=== PATIENT | female | born 1945 | race Caucasian/White ===

== ENCOUNTER 2024-03-30 16:49 | Inpatient (IN) ==
[2024-03-30] MEDS ORDERED: IOPAMIDOL 100 ML BOTTLE IV ONE (16:50)
[2024-03-30] MEDS: ONDANSETRON 4 MG/2 ML VIAL IV ONE (17:20)
[2024-03-30] MEDS: PANTOPRAZOLE 40 MG VIAL IV ONE (17:20)
[2024-03-30 17:55] LABS: Basophils # (Auto) 0.02 K/mcL (0.00-0.30); Basophils % (Auto) 0.1 % (0.0-2.0); Eosinophils # (Auto) 0.01 K/mcL (0.00-0.70); Eosinophils % (Auto) 0.1 % (0.0-7.0); Hemoglobin 13.3 g/dL (11.2-15.7); Lymphocytes # (Auto) 0.91 K/mcL (1.50-4.80); Lymphocytes % (Auto) 5.3 % (15.5-49.0); Mean Cell Volume 91.9 fL (80.0-100.0); Mean Corpuscular HGB Conc 32.4 g/dL (31.0-36.0); Mean Platelet Volume 11.5 fL (8.8-12.5); Monocytes # (Auto) 0.58 K/mcL (0.10-0.90); Monocytes % (Auto) 3.4 % (1.0-12.0); Neutrophils % (Auto) 90.9 % (38.0-78.0); Platelet Count 301 K/mcL (140-440); RBC 4.46 M/mcL (3.59-5.38); Red Cell Distribution Width 13.2 % (11.5-14.5); WBC 17.1 K/mcL (4.5-11.0)
[2024-03-30] MEDS: HYDROmorphone 0.5 MG/0.5 ML SYRINGE IV PRN (18:00)
[2024-03-30 18:04] LABS: ALT/SGPT 12 U/L (<40); AST/SGOT 24 U/L (<32); Albumin 4.4 gm/dL (3.2-5.2); Albumin/Globulin Ratio 1.5 (1.0-2.3); Alkaline Phosphatase 103 U/L (39-117); Bilirubin,Total 0.3 mg/dL (0.1-1.0); Blood Urea Nitrogen 15 mg/dL (8-23); Carbon Dioxide 21 mmol/L (22-30); Chloride 99 mmol/L (96-108); Glomerular Filtration Rate 70; Glucose 169 mg/dL (70-105); Potassium 3.8 mmol/L (3.3-5.1); Sodium 137 mmol/L (133-145)
[2024-03-30] MEDS ORDERED: NALOXONE HCL 0.4 MG/ML VIAL IV PRN (19:31)
[2024-03-30] MEDS ORDERED: HYDROmorphone 0.5 MG/0.5 ML SYRINGE IV PRN (19:36)
[2024-03-30] MEDS: 0.9 % SODIUM CHLORIDE 1,000 ML IV SCH (22:21)
[2024-03-30] MEDS: PIPERACILLIN SODIUM/TAZOBACTAM 3.375 GM in DEXTROSE 5% IN WATER 50 ML IV SCH (22:22)
[2024-03-30] MEDS: PIPERACILLIN SODIUM/TAZOBACTAM 3.375 GM in DEXTROSE 5% IN WATER 100 ML IV SCH (22:48)
[2024-03-31] MEDS: ONDANSETRON 4 MG/2 ML VIAL IV PRN (01:45)
[2024-03-31] MEDS: PIPERACILLIN SODIUM/TAZOBACTAM 3.375 GM in DEXTROSE 5% IN WATER 100 ML IV SCH (01:48)
[2024-03-31 06:43] LABS: Basophils # (Auto) 0.01 K/mcL (0.00-0.30); Basophils % (Auto) 0.1 % (0.0-2.0); Eosinophils # (Auto) 0 K/mcL (0.00-0.70); Eosinophils % (Auto) 0 % (0.0-7.0); Hemoglobin 15.4 g/dL (11.2-15.7); Lymphocytes # (Auto) 0.76 K/mcL (1.50-4.80); Lymphocytes % (Auto) 4.6 % (15.5-49.0); Mean Cell Volume 92.7 fL (80.0-100.0); Mean Corpuscular HGB Conc 32.1 g/dL (31.0-36.0); Monocytes # (Auto) 0.91 K/mcL (0.10-0.90); Monocytes % (Auto) 5.5 % (1.0-12.0); Neutrophils % (Auto) 89.7 % (38.0-78.0); Platelet Count 376 K/mcL (140-440); RBC 5.18 M/mcL (3.59-5.38); Red Cell Distribution Width 13.3 % (11.5-14.5); WBC 16.4 K/mcL (4.5-11.0)
[2024-03-31 07:13] LABS: ALT/SGPT 9 U/L (<40); AST/SGOT 16 U/L (<32); Albumin/Globulin Ratio 1.4 (1.0-2.3); Alkaline Phosphatase 92 U/L (39-117); Bilirubin,Direct < 0.2 mg/dL (0-0.3); Bilirubin,Total 0.4 mg/dL (0.1-1.0); Blood Urea Nitrogen 19 mg/dL (8-23); Calcium 10.4 mg/dL (8.6-10.4); Carbon Dioxide 25 mmol/L (22-30); Chloride 99 mmol/L (96-108); Globulin 2.8 gm/dL (2.2-3.7); Glomerular Filtration Rate 47; Glucose 205 mg/dL (70-105); Lactate Dehydrogenase 151 U/L (135-225); Potassium 4.7 mmol/L (3.3-5.1); Sodium 138 mmol/L (133-145); Triglycerides 84 mg/dL (<150); Uric Acid 5.8 mg/dL (2.5-8.0)
[2024-03-31] MEDS: PANTOPRAZOLE 40 MG VIAL IV SCH (07:30)
[2024-03-31] MEDS ORDERED: ONDANSETRON 4 MG/2 ML VIAL ONE (09:52)
[2024-03-31] MEDS ORDERED: PROPOFOL 200 MG/20 ML VIAL IV ONE (09:52)
[2024-03-31] MEDS ORDERED: fentaNYL 100 MCG/2 ML VIAL ONE (09:52)
[2024-03-31] MEDS ORDERED: SUGAMMADEX SODIUM 200 MG/2 ML VIAL IV ONE ×2 (09:52→11:32)
[2024-03-31] MEDS ORDERED: DEXAMETHASONE 10 MG/ML VIAL ONE (09:52)
[2024-03-31] MEDS ORDERED: GLYCOPYRROLATE 0.2 MG/ML VIAL IV ONE (09:52)
[2024-03-31] MEDS ORDERED: SUCCINYLCHOLINE 200 MG/10 ML VIAL IV ONE (10:06)
[2024-03-31] MEDS ORDERED: ROPIVACAINE HCL/PF 30 ML VIAL IJ ONE (10:06)
[2024-03-31] MEDS ORDERED: ROCURONIUM 10 MG/ML ML IV ONE (11:22)
[2024-03-31] MEDS ORDERED: HYDROmorphone 0.5 MG/0.5 ML SYRINGE ONE (11:25)
[2024-03-31 11:46] LABS: Appearance,Urine Clear (Clear); Bilirubin,Urine Negative (Negative); Color,Urine Yellow; Glucose,Urine (UA) Negative (Negative); Ketones,Urine 15 mg/dL (Negative); Leukocyte Esterase,Urine Negative /uL (Negative); Nitrate,Urine Negative (Negative); PH,Urine 5.5 (5.0-9.0); Protein,Urine Negative (Negative); Specific Gravity,Urine 1.015 (1.000-1.035); Urine Blood Negative ery/mcL (Negative); Urine RBC 0 /hpf (0-3); Urine Squamous Epithelial Cell 0 /hpf (0-4); Urine WBC 0 /hpf (0-4); Urobilinogen,Urine Normal
[2024-03-31] MEDS ORDERED: fentaNYL 100 MCG/2 ML VIAL IV PRN (11:46)
[2024-03-31] MEDS ORDERED: IPRATROPIUM/ALBUTEROL 3 ML AMPUL.NEB NEB PRN (11:46)
[2024-03-31] MEDS: LACTATED RINGERS 1,000 ML IV SCH (12:31)
[2024-03-31] MEDS: ACETAMINOPHEN 1,000 MG/100 ML BAG IV SCH (12:36)
[2024-03-31] MEDS ORDERED: DEXTROSE 50% 50 ML VIAL IV PRN (13:27)
[2024-03-31] MEDS ORDERED: DEXTROSE 31 GM ORAL.SUSP PO PRN (13:27)
[2024-03-31] MEDS: METOCLOPRAMIDE 10 MG/2 ML VIAL IV SCH (13:51)
[2024-03-31] MEDS: INSULIN LISPRO 1 UNIT/0.01 ML UNIT SQ SCH (17:34)
[2024-04-01] MEDS: fentaNYL 100 MCG/2 ML VIAL IV PRN (02:03)
[2024-04-01 09:43] LABS: Basophils # (Auto) 0.01 K/mcL (0.00-0.30); Basophils % (Auto) 0.1 % (0.0-2.0); Eosinophils # (Auto) 0 K/mcL (0.00-0.70); Eosinophils % (Auto) 0 % (0.0-7.0); Hematocrit 37.2 % (34.1-44.9); Hemoglobin 11.8 g/dL (11.2-15.7); Lymphocytes # (Auto) 1.27 K/mcL (1.50-4.80); Lymphocytes % (Auto) 8.2 % (15.5-49.0); Mean Cell Volume 94.7 fL (80.0-100.0); Mean Corpuscular HGB Conc 31.7 g/dL (31.0-36.0); Mean Platelet Volume 10.7 fL (8.8-12.5); Monocytes # (Auto) 1.41 K/mcL (0.10-0.90); Monocytes % (Auto) 9.1 % (1.0-12.0); Neutrophils % (Auto) 82.3 % (38.0-78.0); Platelet Count 255 K/mcL (140-440); RBC 3.93 M/mcL (3.59-5.38); Red Cell Distribution Width 13.6 % (11.5-14.5); WBC 15.5 K/mcL (4.5-11.0)
[2024-04-01 10:10] LABS: ALT/SGPT 8 U/L (<40); AST/SGOT 14 U/L (<32); Albumin 3.3 gm/dL (3.2-5.2); Albumin/Globulin Ratio 1.5 (1.0-2.3); Alkaline Phosphatase 59 U/L (39-117); Bilirubin,Direct < 0.2 mg/dL (0-0.3); Bilirubin,Total 0.3 mg/dL (0.1-1.0); Blood Urea Nitrogen 28 mg/dL (8-23); Calcium 9.3 mg/dL (8.6-10.4); Carbon Dioxide 23 mmol/L (22-30); Chloride 106 mmol/L (96-108); Globulin 2.2 gm/dL (2.2-3.7); Glomerular Filtration Rate 39; Glucose 109 mg/dL (70-105); Lactate Dehydrogenase 132 U/L (135-225); Phosphorous 3.4 mg/dL (2.5-4.5); Potassium 4.2 mmol/L (3.3-5.1); Sodium 139 mmol/L (133-145); Triglycerides 83 mg/dL (<150); Uric Acid 5.3 mg/dL (2.5-8.0)
[2024-04-01] MEDS: DEXTROSE 5%-NS 1,000 ML IV SCH (21:29)
[2024-04-02 13:39] LABS: Basophils # (Auto) 0.02 K/mcL (0.00-0.30); Basophils % (Auto) 0.2 % (0.0-2.0); Eosinophils # (Auto) 0.07 K/mcL (0.00-0.70); Eosinophils % (Auto) 0.6 % (0.0-7.0); Hematocrit 36.5 % (34.1-44.9); Hemoglobin 11.8 g/dL (11.2-15.7); Lymphocytes # (Auto) 1.44 K/mcL (1.50-4.80); Lymphocytes % (Auto) 11.8 % (15.5-49.0); Mean Cell Volume 93.4 fL (80.0-100.0); Mean Corpuscular HGB Conc 32.3 g/dL (31.0-36.0); Mean Platelet Volume 10.8 fL (8.8-12.5); Monocytes # (Auto) 1.07 K/mcL (0.10-0.90); Monocytes % (Auto) 8.8 % (1.0-12.0); Neutrophils % (Auto) 78.4 % (38.0-78.0); Platelet Count 272 K/mcL (140-440); RBC 3.91 M/mcL (3.59-5.38); Red Cell Distribution Width 13.3 % (11.5-14.5); WBC 12.2 K/mcL (4.5-11.0)
[2024-04-02 13:55] LABS: ALT/SGPT 7 U/L (<40); AST/SGOT 17 U/L (<32); Albumin 3.5 gm/dL (3.2-5.2); Albumin/Globulin Ratio 1.6 (1.0-2.3); Alkaline Phosphatase 55 U/L (39-117); Bilirubin,Direct < 0.2 mg/dL (0-0.3); Bilirubin,Total 0.3 mg/dL (0.1-1.0); Blood Urea Nitrogen 14 mg/dL (8-23); Calcium 9.5 mg/dL (8.6-10.4); Carbon Dioxide 24 mmol/L (22-30); Chloride 106 mmol/L (96-108); Globulin 2.2 gm/dL (2.2-3.7); Glomerular Filtration Rate 82; Glucose 115 mg/dL (70-105); Lactate Dehydrogenase 135 U/L (135-225); Phosphorous 1.2 mg/dL (2.5-4.5); Potassium 3.4 mmol/L (3.3-5.1); Sodium 139 mmol/L (133-145); Triglycerides 109 mg/dL (<150); Uric Acid 3.4 mg/dL (2.5-8.0)
[2024-04-03 06:57] LABS: Basophils # (Auto) 0.04 K/mcL (0.00-0.30); Basophils % (Auto) 0.4 % (0.0-2.0); Eosinophils # (Auto) 0.46 K/mcL (0.00-0.70); Eosinophils % (Auto) 4.9 % (0.0-7.0); Hematocrit 35.5 % (34.1-44.9); Hemoglobin 11.6 g/dL (11.2-15.7); Lymphocytes # (Auto) 1.87 K/mcL (1.50-4.80); Lymphocytes % (Auto) 19.9 % (15.5-49.0); Mean Cell Volume 92.4 fL (80.0-100.0); Mean Corpuscular HGB Conc 32.7 g/dL (31.0-36.0); Mean Platelet Volume 11.2 fL (8.8-12.5); Monocytes # (Auto) 0.93 K/mcL (0.10-0.90); Monocytes % (Auto) 9.9 % (1.0-12.0); Neutrophils % (Auto) 64.8 % (38.0-78.0); Platelet Count 248 K/mcL (140-440); RBC 3.84 M/mcL (3.59-5.38); Red Cell Distribution Width 13.1 % (11.5-14.5); WBC 9.4 K/mcL (4.5-11.0)
[2024-04-03 07:20] LABS: ALT/SGPT 8 U/L (<40); AST/SGOT 19 U/L (<32); Albumin 3.3 gm/dL (3.2-5.2); Albumin/Globulin Ratio 1.5 (1.0-2.3); Alkaline Phosphatase 51 U/L (39-117); Bilirubin,Direct < 0.2 mg/dL (0-0.3); Bilirubin,Total 0.4 mg/dL (0.1-1.0); Blood Urea Nitrogen 9 mg/dL (8-23); Calcium 9.5 mg/dL (8.6-10.4); Carbon Dioxide 23 mmol/L (22-30); Chloride 106 mmol/L (96-108); Globulin 2.2 gm/dL (2.2-3.7); Glomerular Filtration Rate 86; Glucose 104 mg/dL (70-105); Lactate Dehydrogenase 157 U/L (135-225); Phosphorous 1.1 mg/dL (2.5-4.5); Potassium 3.2 mmol/L (3.3-5.1); Sodium 138 mmol/L (133-145); Triglycerides 121 mg/dL (<150); Uric Acid 2.7 mg/dL (2.5-8.0)
[2024-04-03] MEDS: POTASSIUM PHOSPHATE 40 MEQ in DEXTROSE 5% IN WATER 500 ML IV SCH (16:06)
[2024-04-04 06:40] LABS: Basophils # (Auto) 0.05 K/mcL (0.00-0.30); Basophils % (Auto) 0.6 % (0.0-2.0); Eosinophils # (Auto) 0.74 K/mcL (0.00-0.70); Eosinophils % (Auto) 8.5 % (0.0-7.0); Hematocrit 36.1 % (34.1-44.9); Hemoglobin 11.9 g/dL (11.2-15.7); Lymphocytes % (Auto) 19.5 % (15.5-49.0); Mean Cell Volume 90.7 fL (80.0-100.0); Mean Platelet Volume 11.3 fL (8.8-12.5); Monocytes # (Auto) 0.82 K/mcL (0.10-0.90); Monocytes % (Auto) 9.4 % (1.0-12.0); Neutrophils % (Auto) 61.9 % (38.0-78.0); Platelet Count 265 K/mcL (140-440); RBC 3.98 M/mcL (3.59-5.38); Red Cell Distribution Width 13.2 % (11.5-14.5); WBC 8.7 K/mcL (4.5-11.0)
[2024-04-04 07:21] LABS: ALT/SGPT 8 U/L (<40); AST/SGOT 22 U/L (<32); Albumin 3.4 gm/dL (3.2-5.2); Albumin/Globulin Ratio 1.5 (1.0-2.3); Alkaline Phosphatase 54 U/L (39-117); Bilirubin,Direct < 0.2 mg/dL (0-0.3); Bilirubin,Total 0.3 mg/dL (0.1-1.0); Blood Urea Nitrogen 7 mg/dL (8-23); Calcium 9.7 mg/dL (8.6-10.4); Carbon Dioxide 23 mmol/L (22-30); Chloride 107 mmol/L (96-108); Globulin 2.3 gm/dL (2.2-3.7); Glomerular Filtration Rate 86; Glucose 108 mg/dL (70-105); Lactate Dehydrogenase 178 U/L (135-225); Phosphorous 2.5 mg/dL (2.5-4.5); Potassium 3.2 mmol/L (3.3-5.1); Sodium 141 mmol/L (133-145); Triglycerides 156 mg/dL (<150); Uric Acid 2.3 mg/dL (2.5-8.0)
[2024-04-04] MEDS: POTASSIUM PHOSPHATE 40 MEQ in DEXTROSE 5% IN WATER 500 ML IV SCH (18:30)
[2024-04-04] MEDS: POTASSIUM PHOSPHATE 66 MEQ/15 ML VIAL IV ONE ×2 (20:25→22:07)
[2024-04-05 06:58] LABS: ALT/SGPT 10 U/L (<40); AST/SGOT 23 U/L (<32); Albumin 3.5 gm/dL (3.2-5.2); Albumin/Globulin Ratio 1.6 (1.0-2.3); Alkaline Phosphatase 59 U/L (39-117); Bilirubin,Direct < 0.2 mg/dL (0-0.3); Bilirubin,Total 0.4 mg/dL (0.1-1.0); Blood Urea Nitrogen 7 mg/dL (8-23); Calcium 9.6 mg/dL (8.6-10.4); Carbon Dioxide 23 mmol/L (22-30); Chloride 104 mmol/L (96-108); Globulin 2.2 gm/dL (2.2-3.7); Glomerular Filtration Rate 82; Glucose 101 mg/dL (70-105); Lactate Dehydrogenase 186 U/L (135-225); Phosphorous 3.7 mg/dL (2.5-4.5); Potassium 3.5 mmol/L (3.3-5.1); Sodium 139 mmol/L (133-145); Triglycerides 170 mg/dL (<150); Uric Acid 2.4 mg/dL (2.5-8.0)
[2024-04-05 07:58] LABS: Basophils # (Auto) 0.05 K/mcL (0.00-0.30); Basophils % (Auto) 0.6 % (0.0-2.0); Eosinophils # (Auto) 1.03 K/mcL (0.00-0.70); Eosinophils % (Auto) 11.7 % (0.0-7.0); Hematocrit 37.5 % (34.1-44.9); Hemoglobin 12.2 g/dL (11.2-15.7); Lymphocytes % (Auto) 17.1 % (15.5-49.0); Mean Cell Volume 91.9 fL (80.0-100.0); Mean Corpuscular HGB Conc 32.5 g/dL (31.0-36.0); Mean Platelet Volume 11.1 fL (8.8-12.5); Monocytes % (Auto) 9.1 % (1.0-12.0); Neutrophils % (Auto) 61.4 % (38.0-78.0); Platelet Count 277 K/mcL (140-440); RBC 4.08 M/mcL (3.59-5.38); Red Cell Distribution Width 13.2 % (11.5-14.5); WBC 8.8 K/mcL (4.5-11.0)
[2024-04-05] MEDS: MAGNESIUM SULFATE 4 GM/100 ML BAG IV SCH (17:10)
[2024-04-07] MEDS: MAGNESIUM SULFATE 4 GM/100 ML BAG IV ONE ×2 (12:39→16:22)
[2024-04-08] MEDS: DEXTROSE 5%-NS 1,000 ML IV SCH (00:03)
[2024-04-08 09:10] LABS: ALT/SGPT 17 U/L (<40); AST/SGOT 26 U/L (<32); Albumin/Globulin Ratio 1.6 (1.0-2.3); Alkaline Phosphatase 83 U/L (39-117); Bilirubin,Direct < 0.2 mg/dL (0-0.3); Bilirubin,Total 0.4 mg/dL (0.1-1.0); Blood Urea Nitrogen 10 mg/dL (8-23); Calcium 10.5 mg/dL (8.6-10.4); Carbon Dioxide 25 mmol/L (22-30); Chloride 101 mmol/L (96-108); Globulin 2.5 gm/dL (2.2-3.7); Glomerular Filtration Rate 60; Glucose 143 mg/dL (70-105); Lactate Dehydrogenase 218 U/L (135-225); Phosphorous 2.5 mg/dL (2.5-4.5); Potassium 3.5 mmol/L (3.3-5.1); Sodium 138 mmol/L (133-145); Triglycerides 100 mg/dL (<150); Uric Acid 3.7 mg/dL (2.5-8.0)
[2024-04-08 15:08] LABS: ALT/SGPT 15 U/L (<40); AST/SGOT 25 U/L (<32); Albumin 3.8 gm/dL (3.2-5.2); Albumin/Globulin Ratio 1.4 (1.0-2.3); Alkaline Phosphatase 82 U/L (39-117); Basophils # (Auto) 0.04 K/mcL (0.00-0.30); Basophils % (Auto) 0.3 % (0.0-2.0); Bilirubin,Direct < 0.2 mg/dL (0-0.3); Bilirubin,Total 0.3 mg/dL (0.1-1.0); Blood Urea Nitrogen 9 mg/dL (8-23); Calcium 10.4 mg/dL (8.6-10.4); Carbon Dioxide 23 mmol/L (22-30); Chloride 101 mmol/L (96-108); Eosinophils # (Auto) 0.01 K/mcL (0.00-0.70); Eosinophils % (Auto) 0.1 % (0.0-7.0); Globulin 2.7 gm/dL (2.2-3.7); Glomerular Filtration Rate 70; Glucose 147 mg/dL (70-105); Hematocrit 40.4 % (34.1-44.9); Hemoglobin 12.9 g/dL (11.2-15.7); Lactate Dehydrogenase 211 U/L (135-225); Lymphocytes # (Auto) 1.41 K/mcL (1.50-4.80); Lymphocytes % (Auto) 9.7 % (15.5-49.0); Mean Cell Volume 92.9 fL (80.0-100.0); Mean Corpuscular HGB Conc 31.9 g/dL (31.0-36.0); Mean Platelet Volume 10.8 fL (8.8-12.5); Monocytes # (Auto) 0.99 K/mcL (0.10-0.90); Monocytes % (Auto) 6.8 % (1.0-12.0); Neutrophils % (Auto) 82.9 % (38.0-78.0); Phosphorous 2.3 mg/dL (2.5-4.5); Platelet Count 360 K/mcL (140-440); Potassium 3.3 mmol/L (3.3-5.1); RBC 4.35 M/mcL (3.59-5.38); Red Cell Distribution Width 13.5 % (11.5-14.5); Sodium 137 mmol/L (133-145); Triglycerides 100 mg/dL (<150); Uric Acid 3.7 mg/dL (2.5-8.0); WBC 14.5 K/mcL (4.5-11.0)
[2024-04-08] MEDS ORDERED: GLYCOPYRROLATE 0.2 MG/ML VIAL IV ONE (15:53)
[2024-04-08] MEDS ORDERED: KETAMINE 50 MG/ML Syringe IV ONE (15:53)
[2024-04-08] MEDS ORDERED: ROCURONIUM 10 MG/ML ML IV ONE (15:53)
[2024-04-08] MEDS ORDERED: fentaNYL 100 MCG/2 ML VIAL ONE (15:53)
[2024-04-08] MEDS ORDERED: DEXAMETHASONE 10 MG/ML VIAL ONE (15:53)
[2024-04-08] MEDS ORDERED: ONDANSETRON 4 MG/2 ML VIAL ONE (15:53)
[2024-04-08] MEDS ORDERED: PROPOFOL 200 MG/20 ML VIAL IV ONE (15:53)
[2024-04-08] MEDS ORDERED: LIDOCAINE 2% PF 5 ML VIAL ONE (15:53)
[2024-04-08] MEDS ORDERED: ROPIVACAINE HCL/PF 30 ML VIAL IJ ONE (15:59)
[2024-04-08] MEDS ORDERED: SUGAMMADEX SODIUM 200 MG/2 ML VIAL IV ONE ×2 (16:20→17:36)
[2024-04-08] MEDS ORDERED: ePHEDrine 50 MG/5 ML SYRINGE (ANEST) IV ONE (16:53)
[2024-04-08] MEDS ORDERED: ePHEDrine 50 MG/ML AMPUL IV ONE (16:55)
[2024-04-08] MEDS ORDERED: PHENYLephrine 1 MG/10 ML SYRINGE (ANEST) ONE (17:13)
[2024-04-08] MEDS ORDERED: fentaNYL 100 MCG/2 ML VIAL IV PRN (17:55)
[2024-04-08] MEDS ORDERED: IPRATROPIUM/ALBUTEROL 3 ML AMPUL.NEB NEB PRN (17:55)
[2024-04-08] MEDS ORDERED: ONDANSETRON 4 MG/2 ML VIAL IV PRN (17:55)
[2024-04-08] MEDS: LACTATED RINGERS 1,000 ML IV SCH (18:36)
[2024-04-10 06:17] LABS: Basophils # (Auto) 0.07 K/mcL (0.00-0.30); Basophils % (Auto) 0.6 % (0.0-2.0); Eosinophils # (Auto) 0.69 K/mcL (0.00-0.70); Hematocrit 37.4 % (34.1-44.9); Hemoglobin 11.8 g/dL (11.2-15.7); Lymphocytes % (Auto) 19.2 % (15.5-49.0); Mean Cell Volume 94.2 fL (80.0-100.0); Mean Corpuscular HGB Conc 31.6 g/dL (31.0-36.0); Mean Platelet Volume 10.8 fL (8.8-12.5); Monocytes # (Auto) 0.97 K/mcL (0.10-0.90); Monocytes % (Auto) 8.5 % (1.0-12.0); Neutrophils % (Auto) 65.6 % (38.0-78.0); Platelet Count 330 K/mcL (140-440); RBC 3.97 M/mcL (3.59-5.38); Red Cell Distribution Width 14.1 % (11.5-14.5); WBC 11.4 K/mcL (4.5-11.0)
[2024-04-10 06:46] LABS: ALT/SGPT 13 U/L (<40); AST/SGOT 20 U/L (<32); Albumin 3.1 gm/dL (3.2-5.2); Albumin/Globulin Ratio 1.4 (1.0-2.3); Alkaline Phosphatase 62 U/L (39-117); Bilirubin,Direct < 0.2 mg/dL (0-0.3); Bilirubin,Total 0.3 mg/dL (0.1-1.0); Blood Urea Nitrogen 8 mg/dL (8-23); Calcium 9.5 mg/dL (8.6-10.4); Carbon Dioxide 23 mmol/L (22-30); Chloride 108 mmol/L (96-108); Globulin 2.2 gm/dL (2.2-3.7); Glomerular Filtration Rate 82; Glucose 88 mg/dL (70-105); Lactate Dehydrogenase 186 U/L (135-225); Phosphorous 1.5 mg/dL (2.5-4.5); Potassium 3.2 mmol/L (3.3-5.1); Sodium 140 mmol/L (133-145); Triglycerides 108 mg/dL (<150); Uric Acid 3.5 mg/dL (2.5-8.0)
[2024-04-10] MEDS: PYRIDOSTIGMINE BROMIDE 10 MG/2 ML AMPUL IV SCH (14:32)
[2024-04-10] MEDS: POTASSIUM PHOSPHATE 40 MEQ in DEXTROSE 5% IN WATER 500 ML IV SCH (15:31)
[2024-04-11 06:38] LABS: ALT/SGPT 13 U/L (<40); AST/SGOT 21 U/L (<32); Albumin 3.1 gm/dL (3.2-5.2); Albumin/Globulin Ratio 1.4 (1.0-2.3); Alkaline Phosphatase 71 U/L (39-117); Bilirubin,Direct < 0.2 mg/dL (0-0.3); Bilirubin,Total 0.3 mg/dL (0.1-1.0); Blood Urea Nitrogen 5 mg/dL (8-23); Calcium 9.6 mg/dL (8.6-10.4); Carbon Dioxide 23 mmol/L (22-30); Chloride 107 mmol/L (96-108); Globulin 2.2 gm/dL (2.2-3.7); Glomerular Filtration Rate 86; Glucose 83 mg/dL (70-105); Lactate Dehydrogenase 192 U/L (135-225); Phosphorous 1.9 mg/dL (2.5-4.5); Potassium 3.1 mmol/L (3.3-5.1); Sodium 139 mmol/L (133-145); Triglycerides 175 mg/dL (<150)
[2024-04-11 06:47] LABS: Basophils # (Auto) 0.07 K/mcL (0.00-0.30); Basophils % (Auto) 0.6 % (0.0-2.0); Eosinophils # (Auto) 0.78 K/mcL (0.00-0.70); Eosinophils % (Auto) 6.6 % (0.0-7.0); Hematocrit 37.9 % (34.1-44.9); Hemoglobin 12.1 g/dL (11.2-15.7); Lymphocytes # (Auto) 2.18 K/mcL (1.50-4.80); Lymphocytes % (Auto) 18.4 % (15.5-49.0); Mean Cell Volume 93.1 fL (80.0-100.0); Mean Corpuscular HGB Conc 31.9 g/dL (31.0-36.0); Mean Platelet Volume 11.2 fL (8.8-12.5); Monocytes # (Auto) 0.77 K/mcL (0.10-0.90); Monocytes % (Auto) 6.5 % (1.0-12.0); Neutrophils % (Auto) 67.7 % (38.0-78.0); Platelet Count 356 K/mcL (140-440); RBC 4.07 M/mcL (3.59-5.38); Red Cell Distribution Width 13.8 % (11.5-14.5); WBC 11.8 K/mcL (4.5-11.0)
[2024-04-11] MEDS: PYRIDOSTIGMINE 60 MG TABLET PO SCH (07:37)
[2024-04-11] MEDS: POTASSIUM PHOSPHATE 40 MEQ in DEXTROSE 5% IN WATER 500 ML IV SCH (14:06)
[2024-04-12 06:04] LABS: Basophils # (Auto) 0.09 K/mcL (0.00-0.30); Basophils % (Auto) 0.8 % (0.0-2.0); Eosinophils # (Auto) 0.86 K/mcL (0.00-0.70); Eosinophils % (Auto) 7.7 % (0.0-7.0); Hematocrit 36.8 % (34.1-44.9); Hemoglobin 12.1 g/dL (11.2-15.7); Lymphocytes # (Auto) 2.26 K/mcL (1.50-4.80); Lymphocytes % (Auto) 20.3 % (15.5-49.0); Mean Cell Volume 90.6 fL (80.0-100.0); Mean Corpuscular HGB Conc 32.9 g/dL (31.0-36.0); Mean Platelet Volume 10.6 fL (8.8-12.5); Monocytes # (Auto) 0.71 K/mcL (0.10-0.90); Monocytes % (Auto) 6.4 % (1.0-12.0); Neutrophils % (Auto) 64.5 % (38.0-78.0); Platelet Count 349 K/mcL (140-440); RBC 4.06 M/mcL (3.59-5.38); Red Cell Distribution Width 13.7 % (11.5-14.5); WBC 11.2 K/mcL (4.5-11.0)
[2024-04-12] MEDS: POTASSIUM CHLORIDE 10 MEQ/100 ML BAG IV SCH (18:52)
[2024-04-13 05:55] LABS: Basophils % (Auto) 0.8 % (0.0-2.0); Eosinophils # (Auto) 0.88 K/mcL (0.00-0.70); Eosinophils % (Auto) 7.1 % (0.0-7.0); Hematocrit 37.7 % (34.1-44.9); Hemoglobin 12.5 g/dL (11.2-15.7); Lymphocytes # (Auto) 2.82 K/mcL (1.50-4.80); Lymphocytes % (Auto) 22.6 % (15.5-49.0); Mean Cell Volume 91.1 fL (80.0-100.0); Mean Corpuscular HGB Conc 33.2 g/dL (31.0-36.0); Mean Platelet Volume 10.7 fL (8.8-12.5); Monocytes # (Auto) 0.69 K/mcL (0.10-0.90); Monocytes % (Auto) 5.5 % (1.0-12.0); Neutrophils % (Auto) 63.7 % (38.0-78.0); Platelet Count 395 K/mcL (140-440); RBC 4.14 M/mcL (3.59-5.38); WBC 12.5 K/mcL (4.5-11.0)
== END 2024-04-13 16:00 | disposition home or self-care (01) | DRG 329 ==
LOC: MEDSUR 16:49 → ED 16:49 → OBSVTOIN 21:18 → MEDSUR 21:37
PROVIDERS: ADMIT Family Medicine Adult Medicine; ATTEND Family Medicine Adult Medicine